=== PATIENT | male | born 1970 | race Caucasian/White ===

== ENCOUNTER 2018-01-02 16:27 | Emergency (ER) | payer SELFPAY ==
[~2018-01-02] VITALS: Ht 185.4 cm; Wt 127.0 kg
--- NOTE | 2018-01-02 16:58 | ED Integumentary General ---
General Stated Complaint: SPIDER BITE SKIN REDNESS/DISCOLORATION Source: patient Exam Limitations: no limitations History of Present Illness Date Seen by Provider: Jan 02, 2018 Time Seen by Provider: 16:56 Initial Comments To ER per private vehicle with reports of a suspected spider bite. This began on Tuesday evening when he was helping a friend move from [facility]. While moving he felt a "pop" and subsequent pain to the right upper shoulder. Tuesday morning he developed fevers chills and nausea. He was seen at the emergency room in [facility] on Tuesday evening and given a prescription for Bactrim. He has been taking the Bactrim but despite this has worsening redness and discomfort in the right upper lateral chest. Fevers and nausea have subsided Timing/Duration: just prior to arrival Severity: moderate Location: torso Allergies and Home Medications Allergies Coded Allergies: No Known Drug Allergies (Unverified , 01/02/18) Home Medications Hydrocodone/Acetaminophen 1 Each Tablet, 1 EACH PO Q6H PRN for PAIN-MODERATE Prescribed by: ERIK ALVARENGA on 01/02/18 [id number] Patient Home Medication List Home Medication List Reviewed: Yes Review of Systems Review of Systems Constitutional: see HPI, chills, fever EENTM: see HPI Respiratory: see HPI; No cough, No short of breath Cardiovascular: see HPI; No chest pain Gastrointestinal: nausea Genitourinary: no symptoms reported Musculoskeletal: no symptoms reported Skin: see HPI Psychiatric/Neurological: No Symptoms Reported Past Xqbsrio-[id number]-Lxfsqi Hx Patient Social History Recent Foreign Travel: No Contact w/Someone Who Travel: No Physical Exam Vital Signs Capillary Refill : General Appearance: WD/WN, no apparent distress HEENT: PERRL/EOMI, normal ENT inspection Neck: non-tender, full range of motion Respiratory: no respiratory distress, no accessory muscle use Gastrointestinal: normal bowel sounds, non tender Neurologic/Psychiatric: alert, normal mood/affect, oriented x 3 Skin: normal color, warm/dry Skin Problem Location: torso Skin Problem Character: other Comments To the right anterior axilla there is a 4 mm eschar of necrotic tissue. Anterior and medial to this is a 13 cm from top to bottom and 8 cm side to side measurement of ischemic appearing whitish purple tissue with a well demarcated border. This does sebastián however. Surrounding this is an additional 10 cm of erythema in all directions. No fluctuance to suggest abscess, I do suspect this to be a true brown recluse bite. Progress/Results/Core Measures Results/Orders Lab Results Laboratory Tests Test 01/02/18 17:00 Range/Units White Blood Count 5.7 4.3-11.0 10^3/uL Red Blood Count 4.88 4.35-5.85 10^6/uL Hemoglobin 14.2 13.3-17.7 G/DL Hematocrit 41 40-54 % Mean Corpuscular Volume 84 80-99 FL Mean Corpuscular Hemoglobin 29 25-34 PG Mean Corpuscular Hemoglobin Concent 35 32-36 G/DL Red Cell Distribution Width 14.4 10.0-14.5 % Platelet Count 147 130-400 10^3/uL Mean Platelet Volume 12.1 H 7.4-10.4 FL Neutrophils (%) (Auto) 73 42-75 % Lymphocytes (%) (Auto) 14 12-44 % Monocytes (%) (Auto) 8 0-12 % Eosinophils (%) (Auto) 5 0-10 % Basophils (%) (Auto) 0 0-10 % Neutrophils # (Auto) 4.2 1.8-7.8 X 10^3 Lymphocytes # (Auto) 0.8 L 1.0-4.0 X 10^3 Monocytes # (Auto) 0.4 0.0-1.0 X 10^3 Eosinophils # (Auto) 0.3 0.0-0.3 10^3/uL Basophils # (Auto) 0.0 0.0-0.1 10^3/uL Sodium Level 137 135-145 MMOL/L Potassium Level 3.7 3.6-5.0 MMOL/L Chloride Level 102 98-107 MMOL/L Carbon Dioxide Level 22 21-32 MMOL/L Anion Gap 13 5-14 MMOL/L Blood Urea Nitrogen 9 7-18 MG/DL Creatinine 0.90 0.60-1.30 MG/DL Estimat Glomerular Filtration Rate > 60 BUN/Creatinine Ratio 10 Glucose Level 122 H 70-105 MG/DL Calcium Level 9.0 8.5-10.1 MG/DL Corrected Calcium 8.9 8.5-10.1 MG/DL Total Bilirubin 2.1 H 0.1-1.0 MG/DL Aspartate Amino Transf (AST/SGOT) 70 H 5-34 U/L Alanine Aminotransferase (ALT/SGPT) 139 H 0-55 U/L Alkaline Phosphatase 86 40-136 U/L Total Protein 7.5 6.4-8.2 GM/DL Albumin 4.1 3.2-4.5 GM/DL My Orders Orders - ERIK ALVARENGA APRN Cbc With Automated Diff (01/02/18 16:53) Comprehensive Metabolic Panel (01/02/18 16:53) Dexamethasone Injection (Decadron Inject (01/02/18 17:30) Departure Communication (Admissions) Liver enzymes are slightly elevated. We do not have ultrasound available at this time. He denies any nausea vomiting or abdominal pain. He will need follow- up for further evaluation of this. Impression Primary Impression: Brown recluse spider bite Qualified Codes: T63.331A - Toxic effect of venom of brown recluse spider, accidental (unintentional), initial encounter Additional Impression: Elevated liver function tests Disposition: HOME, SELF-CARE Condition: Stable Departure-Patient Inst. Decision time for Depature: 17:03 Referrals: KEO HERNANDEZ DO (PCP/Family) Primary Care Physician Patient Instructions: Spider Bites Add. Discharge Instructions: 1. Return to ER for any fevers nausea or vomiting. Continue to take the antibiotics. Cool compresses to this area. Cool compresses have been shown to reduce tissue injury from spider venom. There is unfortunately nothing more to do at this time. Keep taking her antibiotics and cool compresses, follow-up with your doctor this week for recheck towards the end of the week. This will take 2-4 weeks to improve. Pain medication as needed.Your liver enzymes were slightly elevated today. You need to call Dr. Dr. Hernandez tomorrow to make an appointment to be seen to further evaluate your liver enzymes. Scripts Hydrocodone/Acetaminophen (Jewett 5-325 Tablet) 1 Each Tablet 1 EACH PO Q6H PRN for PAIN-MODERATE MDD 10, #20 TAB Prov: ERIK ALVARENGA APRN 01/02/18 Work/School Note: Work Release Form Date Seen in the Emergency Department: Jan 02, 2018 Return to Work: Jan 04, 2018 Images Torso/Trunk 1 - Rash, Tenderness Copy Copies To 1: KEO HERNANDEZ PETER J APRN Jan 02, 2018 16:58
[2018-01-02 17:07] LABS: BASOPHILS % (AUTO) 0 % (0-10); EOSINOPHILS # (AUTO) 0.3 10^3/uL (0.0-0.3); EOSINOPHILS % (AUTO) 5 % (0-10); HEMATOCRIT 41 % (40-54); HEMOGLOBIN 14.2 G/DL (13.3-17.7); LYMPHOCYTES # (AUTO) 0.8 X 10^3 (1.0-4.0); LYMPHOCYTES % (AUTO) 14 % (12-44); MEAN CORPUSCULAR HEMOGLOBIN 29 PG (25-34); MEAN CORPUSCULAR HGB CONC 35 G/DL (32-36); MEAN CORPUSCULAR VOLUME 84 FL (80-99); MEAN PLATELET VOLUME 12.1 FL (7.4-10.4); MONOCYTES # (AUTO) 0.4 X 10^3 (0.0-1.0); MONOCYTES % (AUTO) 8 % (0-12); NEUTROPHILS # (AUTO) 4.2 X 10^3 (1.8-7.8); NEUTROPHILS % (AUTO) 73 % (42-75); PLATELET COUNT 147 10^3/uL (130-400); RED BLOOD COUNT 4.88 10^6/uL (4.35-5.85); RED CELL DISTRIBUTION WIDTH 14.4 % (10.0-14.5); WHITE BLOOD COUNT 5.7 10^3/uL (4.3-11.0)
[2018-01-02] MEDS ORDERED: HYDR-4226 PO (17:07)
[2018-01-02 17:23] LABS: ALANINE AMINOTRANSFERASE 139 U/L (0-55); ALBUMIN 4.1 GM/DL (3.2-4.5); ALKALINE PHOSPHATASE 86 U/L (40-136); BILIRUBIN,TOTAL 2.1 MG/DL (0.1-1.0); BUN/CREATININE RATIO 10; CARBON DIOXIDE 22 MMOL/L (21-32); CHLORIDE 102 MMOL/L (98-107); GFR ESTIMATED > 60; GLUCOSE 122 MG/DL (70-105); POTASSIUM 3.7 MMOL/L (3.6-5.0); SODIUM 137 MMOL/L (135-145); TOTAL PROTEIN 7.5 GM/DL (6.4-8.2)
[2018-01-02] MEDS ORDERED: DEXAMETHASONE 10 MG/ML (DECADRON) 1 ML VIAL IM ONE (17:30)
[2018-01-02 17:47] VITALS: BP 133/89
== END 2018-01-02 17:47 | disposition home or self-care (01) ==
LOC: EDUNIT# 16:27 → ER 16:29
DX: T63.331A Toxic effect of venom of brown recluse spider, accidental (unintentional), initial encounter (principal); R94.5 Abnormal results of liver function studies
CPT/HCPCS: 36415; 80053; 85025; 99284

== ENCOUNTER → 2018-01-06 | Outpatient (CLI) | payer SELFPAY ==
[~2018-01-06] MED LIST: HYDR-4226 PO
[2018-01-06 09:47] LABS: ALBUMIN 4.1 GM/DL (3.2-4.5); BILIRUBIN,DIRECT 0.8 MG/DL (0.0-0.3); BILIRUBIN,INDIRECT 2.2 MG/DL; TOTAL PROTEIN 7.5 GM/DL (6.4-8.2)
== END ==
LOC: RAD 08:53
PROVIDERS: ATTEND Family Medicine
DX: T63.301A Toxic effect of unspecified spider venom, accidental (unintentional), initial encounter (principal); R79.89 Other specified abnormal findings of blood chemistry
CPT/HCPCS: 36415; 80076